=== PATIENT | male | born 1980 | race Two or more races ===

== ENCOUNTER → 2019-03-19 | Outpatient (CLI) | payer OTHER | END | disposition home or self-care (01) | LOC: RX STUDY 09:15 | DX: K44.9 Diaphragmatic hernia without obstruction or gangrene (principal); K22.70 Barrett's esophagus without dysplasia ==

== ENCOUNTER 2019-12-25 14:14 | Emergency (ER) | payer OTHER ==
[~2019-12-25] VITALS: Ht 182.9 cm; Wt 75.3 kg
== END 2019-12-25 19:14 | disposition home or self-care (01) ==
LOC: ER 14:14
DX: M50.30 Other cervical disc degeneration, unspecified cervical region (principal); R51.9 Headache, unspecified

== ENCOUNTER 2020-01-30 12:39 | Outpatient (CLI) | payer OTHER | END 2020-01-30 16:44 | disposition home or self-care (01) | LOC: MRI 12:39 | PROVIDERS: ATTEND Physical Medicine & Rehabilitation | DX: M53.1 Cervicobrachial syndrome (principal); M50.822 Other cervical disc disorders at C5-C6 level; M54.12 Radiculopathy, cervical region | CPT/HCPCS: 72141 ==

== ENCOUNTER 2020-02-23 12:07 | Outpatient (CLI) | payer OTHER | END 2020-02-23 12:13 | disposition home or self-care (01) | LOC: TOM 12:07 | PROVIDERS: ATTEND Physical Medicine & Rehabilitation | DX: G93.89 Other specified disorders of brain (principal); M54.81 Occipital neuralgia; R26.89 Other abnormalities of gait and mobility; M54.2 Cervicalgia | CPT/HCPCS: 70551 ==